=== PATIENT | male | born 1980 | race African-American/Black ===

== ENCOUNTER 2021-05-12 12:20 | Outpatient (REF) | payer OTHER, SELFPAY ==
[2021-05-12 14:01] LABS: Appearance Urine CLEAR; Color Urine YELLOW; Glucose Urine UA NEG (NEG); Leukocyte Esterase Urine NEG (NEG); Nitrite Urine NEG (NEG); Urine Blood NEG (NEG); Urine Ketones NEG (NEG); Urine Protein TRACE MG/DL (NEG-TRACE)
[2021-05-12 14:19] LABS: Alanine Aminotransferase 9 U/L (0-40); Albumin Level 4.1 g/dL (3.5-5.0); Alkaline Phosphatase 89 U/L (39-117); Anion Gap 9 (12-20); Aspartate Amino Transferase 13 U/L (5-37); Bilirubin Total 0.6 mg/dL (0.0-1.0); Blood Urea Nitrogen 6 mg/dL (9-16); Calcium 9.4 mg/dL (8.4-10.2); Carbon Dioxide 28 mmol/L (22-29); Chloride 107 mmol/L (96-108); Cholesterol 136 mg/dL; Estimated Glomerular Filt Rate > 60; Glucose Fasting 78 mg/dL (60-99); HDL Cholesterol 37 mg/dL; LDL Cholesterol Calculated 68 mg/dl; Potassium 4.4 mmol/L (3.3-5.1); Sodium 140 mmol/L (135-145); Total Protein 6.7 g/dL (6.5-8.0); Triglycerides 155 mg/dL
[2021-05-12 14:36] LABS: TSH reflex Free T4 0.96 uIU/mL (0.32-4.0)
== END 2021-05-12 12:21 | disposition home or self-care (01) ==
LOC: HO.HMGCLDS 12:20
PROVIDERS: PCP Nurse Practitioner Family; Visit Provider Nurse Practitioner Family
DX: F25.9 Schizoaffective disorder, unspecified (principal); Z86.69 Personal history of other diseases of the nervous system and sense organs
CPT/HCPCS: 36415; 80053; 80061; 81003; 84443

== ENCOUNTER 2021-09-15 11:51 | Outpatient (REF) | payer OTHER, SELFPAY ==
[2021-09-15 14:17] LABS: Erythrocyte Sedimentation Rate 1 MM/HR (0-15)
[2021-09-16 13:30] LABS: Vitamin B12 391 pg/mL (200-900)
[2021-09-17 06:02] LABS: Lyme Blot 1.09 index
[2021-09-17 09:50] LABS: HIV AB/AG Nonreactive (Nonreactive); HIV Num 1 0.06 S/CO (0.00-0.99)
[2021-09-17 11:36] LABS: Lyme Abs Screen EQUIVOCAL
[2021-09-17 12:51] LABS: Anti Nuclear Antibody Screen NEGATIVE (NEGATIVE)
[2021-09-18 08:45] LABS: Syphilis Screen Nonreactive (Nonreactive)
[2021-09-21 12:51] LABS: 18 KD (IgG) Band NON-REACTIVE; 23 KD (IgG) Band NON-REACTIVE; 23 KD (IgM) Band NON-REACTIVE; 28 KD (IgG) Band NON-REACTIVE; 30 KD (IgG) Band NON-REACTIVE; 39 KD (IgM) Band NON-REACTIVE; 41 KD (IgM) Band NON-REACTIVE; 45 KD (IgG) Band REACTIVE; 58 KD (IgG) Band NON-REACTIVE; 66 KD (IgG) Band NON-REACTIVE; 93 KD (IgG) Band NON-REACTIVE; Lyme IgG Blot Interp NEGATIVE (NEGATIVE); Lyme IgM Blot Interp NEGATIVE (NEGATIVE)
== END 2021-09-15 11:52 | disposition home or self-care (01) ==
LOC: HO.LAB 11:51
PROVIDERS: PCP Nurse Practitioner Family; Visit Provider Psychiatry & Neurology Neurology
DX: Z11.4 Encounter for screening for human immunodeficiency virus [HIV] (principal); G93.49 Other encephalopathy
CPT/HCPCS: 36415; 82607; 85652; 86038; 86039; 86617; 86618; 86780; 87389

== ENCOUNTER 2022-11-23 11:52 | Outpatient (REF) | payer OTHER, SELFPAY ==
[2022-11-23 14:06] LABS: MANUAL DIFF FLAG NO
[2022-11-23 14:10] LABS: Basophils Percent Auto 0.4 % (0-2); Eosinophils Absolute Auto 0.1 X10*3/uL (0.0-0.4); Eosinophils Percent Auto 1.9 % (0-4); Hematocrit 49.5 % (42.0-52.0); Imm Gran Abs Auto 0.01 X10*3/uL (0.00-0.03); Imm Gran Pct Auto 0.2 % (0.0-0.4); Lymphocytes Absolute Auto 2.2 X10*3/uL (1.2-4.9); Lymphocytes Percent Auto 39.1 % (20-40); Mean Corpuscular HGB Conc 34.3 g/dl (31.0-36.0); Mean Corpuscular Hemoglobin 32.5 pg (27.0-33.0); Mean Corpuscular Volume 94.6 fL (80.0-98.0); Mean Platelet Volume 10.3 fL (9.4-12.4); Monocytes Absolute Auto 0.5 X10*3/uL (0.1-1.2); Monocytes Percent Auto 7.9 % (2-11); Neutrophils Absolute Auto 2.9 x10*3/uL (2.0-8.3); Neutrophils Percent Auto 50.5 % (45-73); Platelet Count 245 X10*3/uL (160-400); Red Blood Count 5.23 X10*6/uL (4.60-5.80); Red Cell Distribution Width 12.7 % (11.0-16.0); White Blood Count 5.7 X10*3/uL (4.8-10.8)
[2022-11-23 14:21] LABS: Appearance Urine Turbid; Color Urine Other; Glucose Urine UA Negative (Negative); Leukocyte Esterase Urine Negative (Negative); PH 5.5 (5.0-9.0); Specific Gravity - Urine >= 1.030 (1.005-1.025); UMIC TRIGGER UACC YES; Urine Blood Negative (Negative); Urine Ketones Negative (Negative); Urine Protein Negative (Neg-Trace)
[2022-11-23 14:33] LABS: Anion Gap 9 (12-20); Blood Urea Nitrogen 9 mg/dL (9-16); Carbon Dioxide 28 mmol/L (22-29); Chloride 107 mmol/L (96-108); Estimated Glomerular Filt Rate > 60; Glucose Fasting 82 mg/dL (60-99); Sodium 140 mmol/L (135-145)
[2022-11-23 14:34] LABS: Alanine Aminotransferase 9 U/L (0-40); Albumin Level 4.1 g/dL (3.5-5.0); Alkaline Phosphatase 89 U/L (39-117); Aspartate Amino Transferase 14 U/L (5-37); Bilirubin Total 1.6 mg/dL (0.0-1.0); Calcium 9.4 mg/dL (8.4-10.2); Cholesterol 171 mg/dL; HDL Cholesterol 37 mg/dL; LDL Cholesterol Calculated 106 mg/dl; Total Protein 6.5 g/dL (6.5-8.0); Triglycerides 143 mg/dL
[2022-11-23 14:35] LABS: Bacteria Urine None Seen (None Seen); Hyaline Casts Urine 0-2 /LPF (0-2); RBC Urine 0-2 /HPF (0-2); Squamous Epithelial Cell Urine 0-2 /HPF (0-2); WBC Urine 0-5 /HPF (0-5)
[2022-11-23 14:51] LABS: Prostate Specific Antigen Scr 0.75 ng/mL (<0.05-4.0); TSH reflex Free T4 1.64 uIU/mL (0.32-4.0)
== END 2022-11-23 11:53 | disposition home or self-care (01) ==
LOC: HO.HMGCLDS 11:52
PROVIDERS: PCP Nurse Practitioner Family; Visit Provider Nurse Practitioner Family
DX: F25.9 Schizoaffective disorder, unspecified (principal); F31.62 Bipolar disorder, current episode mixed, moderate; N40.0 Benign prostatic hyperplasia without lower urinary tract symptoms; R17 Unspecified jaundice
CPT/HCPCS: 36415; 80053; 80061; 81001; 84153; 84443; 85025

== ENCOUNTER 2023-06-14 15:05 | Outpatient (AMB) | payer OTHER, SELFPAY ==
[2023-06-14 15:07] VITALS: BP 110/76; PULSE 72; O2SAT 95; BMI 22.3
--- NOTE | 2023-06-14 15:07 | MHC.PC.OV ---
Vital Signs 06/14/23 15:07 Height 5 ft 9 in Weight 151 lb BMI 22.3 BP 110/76 Blood Pressure Location Lt brachial Position Sitting Pulse 72 Pulse Source Pulse Oximeter Pulse Oximetry (%) 95 Oxygen Delivery Method Room Air Intake Visit Reasons: PE Intake Note: Pt is here today for PE. Allergies No Known Allergies Allergy (Verified 06/14/23 15:09) Medication List - Last Reconciled 06/14/23 by GERSON Garcia albuterol sulfate 2.5 mg (3 mL) inhalation Q8H 30 days albuterol sulfate 90 mcg/actuation 2 puffs inhalation Q6H PRN 30 days buspirone 10 mg PO DAILY cholecalciferol (vitamin D3) (Vitamin D3) 10 mcg PO DAILY 90 days finasteride 5 mg PO DAILY 90 days fluticasone propionate 50 mcg/actuation (Flovent Diskus) 1 inh inhalation BID 30 days gabapentin 100 mg PO BID iloperidone (Fanapt) 1 mg PO BID iloperidone (Fanapt) 2 mg PO BID montelukast 10 mg PO DAILY 90 days Tobacco use date assessed: 06/14/23 Dental Screening Dental Screen Date: 06/14/23 Did you have a dental visit in the last 12 months?: No Did you have a dental problem in the last 6 months where you did not have access to dental care?: Yes Was dental information given to patient?: Yes HPI PE HPI Details Pt is here for a PE. Will order labs. Pt does see a psychiatrist. Hx of vitamin D deficiency, will order labs. [facility] Medical History Asthma Bipolar disorder, current episode mixed, moderate Enlarged prostate Hemorrhoids Post traumatic stress disorder (PTSD) Schizoaffective disorder Seizures Social History Housing: House Patient Tobacco Use Status: Current everyday Tobacco user (black and milds ) Tobacco use type: Cigar Cigarettes Per Day: 5 e-Cigarette/Vaping Use: Never Used Second Hand Smoke Exposure: No service: No Current occupational status: disabled Cognitive needs: No Hearing needs: No Vision needs: No Questionnaire PHQ-9 Over the last 2 weeks, how often have you been bothered by any of the following problems? 1. Little interest or pleasure in doing things: nearly every day 2. Feeling down, depressed, or hopeless: nearly every day 3. Trouble falling or staying asleep, or sleeping too much: more than half the days 4. Feeling tired or having little energy: more than half the days 5. Poor appetite or overeating: nearly every day 6. Feeling bad about yourself - or that you are a failure or have let yourself or your family down: more than half the days 7. Trouble concentrating on things, such as reading the newspaper or watching television: nearly every day 8. Moving or speaking so slowly that other people could have noticed. Or the opposite - being so fidgety or restless that you have been moving around a lot more than usual: more than half the days 9. Thoughts that you would be better off or of hurting yourself in some way: not at all Total score: 20 Depression Screening Interpretation: Positive Depression Screening Follow-up: Existing condition, In treatment and Other (has a psychiatrist, denies any SI or HI) Depression Screening Done: Yes 19991 - PHQ-9 Billing: Yes Source: Developed by Drs. Phil Leonardo, Katie Simons, Horace Wills and colleagues, with an educational adalid from [employer]. Thrive Questionnaire Date Thrive assessed: 06/14/23 I am a: Patient What is your living situation today?: I have a steady place to live Within the past 12 months, did the food you bought not last and you didn't have the money to get more?: Often true Within the past 12 months, did you worry whether your food would run out before you got money to buy more?: Often true Do you have trouble paying for medicines?: Yes Do you have trouble getting transportation to medical appointments?: No Do you have trouble paying your heating and electricity bill?: Yes Do you have trouble taking care of your child, family member or friend?: No Do you have trouble with day-to-day activities such as bathing, preparing meals, shopping, managing finances, etc.?: Yes Are you currently unemployed and looking for a job?: No Are you interested in more education?: Yes Please select the resources that you would like help with: Paying for medicine, Utilities, Daily support and Education MIRIAN-7 AMB Questionnaire MIRIAN-7 Date MIRIAN - 7 assessed: 06/14/23 Feeling nervous, anxious, or on edge: 3 = Nearly every day Not being able to stop or control worryin = Nearly every day Worrying too much about different things: 3 = Nearly every day Trouble relaxin = Nearly every day Being so restless that it is hard to sit still: 3 = Nearly every day Becoming easily annoyed or irritable: 3 = Nearly every day Feeling afraid as if something awful might happen: 2 = More than half the days Total MIRIAN-7 score (0-4 normal; 5-9 mild; 10-14 moderate; 15-21 severe): 20 Source: Developed by Drs. Phil Leonardo, Katie Simons, Horace Wills and colleagues, with an educational adalid from [employer]. MIRIAN-7 Assessment Billing MIRIAN-7 Assessment Tool: MIRIAN-7 Assessment 66286 Review of Systems Const Denies chills and Denies fever(s) Eyes Denies blurry vision ENT Denies vertigo, Denies dizziness and Denies sore throat Card Denies chest pain at rest, Denies chest pain with activity, Denies diaphoresis, Denies dyspnea and Denies dyspnea on exertion Resp Denies cough, Denies dyspnea, Denies dyspnea on exertion and Denies wheezing GI Denies abdominal pain, Denies melena, Denies hematochezia, Denies constipation, Denies diarrhea and Denies loose stools Denies hematuria Musc Denies numbness and Denies tingling Skin/Breast Denies lesions Neuro Denies vertigo, Denies dizziness, Denies numbness and Denies tingling Psych Denies anxiety, Denies depression, Denies homicidal ideation, Denies suicidal ideation and Denies other (substance abuse) Aller/Immun Denies wheezing Physical exam (Primary Care) Vital Signs: Last Vital Signs Pulse 72 06/14/23 15:07 BP 110/76 06/14/23 15:07 Pulse Ox 95 06/14/23 15:07 Oxygen Delivery Method Room Air 06/14/23 15:07 BMI result Body Mass Index 22.3 Tobacco/Smoking Status: Tobacco use Status Tobacco use date assessed 06/14/23 06/14/23 15:13 Patient Tobacco Use Status Current everyday Tobacco ( 06/14/23 15:07 black and milds ) Tobacco use type Cigar 06/14/23 15:07 e-Cigarette/Vaping Use Never Used 06/14/23 15:07 PHQ-9: PHQ-9 Score PHQ-9: Total score 20 06/14/23 15:51 Depression Screening Interpretation: Positive Depression Screening Follow-up: Existing condition, In treatment and Other (has a psychiatrist, denies any SI or HI) Thrive Assessment: Date of Thrive Assessment Date Thrive assessed 06/14/23 06/14/23 15:51 Const General: cooperative Nutritional Appearance: well nourished Orientation/consciousness: patient oriented x3 HENMT Head: Yes normal to inspection, Yes normocephalic and Yes atraumatic Ears: TM's normal bilaterally Eyes General: appearance normal, both eyes and all related structures Alignment and Position: alignment normal and position normal Neck Neck: Yes normal visual inspection and Yes no lymphadenopathy Thyroid: Thyroid normal Resp Effort & Inspection: normal respiratory effort Auscultation: clear to auscultation bilaterally Cardio Rate: regular rate Rhythm: regular rhythm Heart sounds: S1 normal heart sound present, S2 normal heart sound present and no murmurs GI Palpation (GI): Soft to palpation and nontender Auscultation: normal bowel sounds Male General Exam: Yes normal external exam Penis: normal penis Scrotum: scrotum normal, testes descended bilaterally and no inguinal hernias Testes: no testicular mass Skin Rashes: no rashes Neuro General: patient oriented x3, moves all extremities, no focal motor deficits and deep tendon reflexes 2+ bilaterally Romberg Test: Negative Psych Appearance: grossly normal Mental Status: mental status grossly normal Speech and movement: Normal speech and movement present Affect: normal affect Attitude: cooperative Thought process: Normal thought process present Thought content: Normal thought content present Insight: Good insight present (Psych) Judgement: Good judgement present (Psych) Assessment and Plan Assessment & Plan (1) Physical exam: Code(s): Z00.00 - Encounter for general adult medical examination without abnormal findings Plan: Labs ordered (2) Vitamin D deficiency: Code(s): E55.9 - Vitamin D deficiency, unspecified Plan: Labs ordered Plan The patient agreed to the use of a ophthalmic medical technologist for this encounter. Scribed for GERSON Ramirez by Kathrine Lam ophthalmic medical technologist, on 06/14/2023 at 15:30 EST. Orders: Orders Comprehensive [place]. Panel Fast Today Z00.00 - Encounter for general adult medical examination without abnormal findings Lipid Panel Today Z00.00 - Encounter for general adult medical examination without abnormal findings Vitamin D 25-OH Total Today E55.9 - Vitamin D deficiency, unspecified Complete Blood Count Auto Diff Today Z00.00 - Encounter for general adult medical examination without abnormal findings TSH reflex Free T4 Today Z00.00 - Encounter for general adult medical examination without abnormal findings UA CC w/rflx Micro + Cult Today Z00.00 - Encounter for general adult medical examination without abnormal findings Coding Level of Care Code Est Pt Prev Care 40-64y(71927) Diagnoses Physical exam Z00.00 Vitamin D deficiency E55.9 Additional Codes MIRIAN-7 Assessment Billing - MIRIAN-7 Assessment Tool: MIRIAN-7 Assessment [id number] ([id number])
== END 2023-06-14 15:42 | disposition home or self-care (01) ==
PROVIDERS: Visit Provider Nurse Practitioner Family
DX: Z00.00 Encounter for general adult medical examination without abnormal findings (principal); E55.9 Vitamin D deficiency, unspecified; F31.62 Bipolar disorder, current episode mixed, moderate; F25.9 Schizoaffective disorder, unspecified
CPT/HCPCS: 99396

== ENCOUNTER 2024-06-21 09:53 | Outpatient (AMB) | payer OTHER, SELFPAY ==
--- NOTE | 2024-06-21 09:56 | AM.OFFWIN_ITS ---
Intake Vital Signs 3 06/21/24 10:03 Height 5 ft 9 in BP 110/72 Blood Pressure Location Rt brachial Position Sitting Pulse 72 Pulse Source Pulse Oximeter Temp 97.7 F Temp Source Oral Pulse Oximetry (%) 96 Oxygen Delivery Method Room Air Intake Visit Reasons: EP-lt side face swollen Intake Note: pt is here for left side face swollen Patient Tobacco Use Status: Current everyday Tobacco user (black and milds ) Allergies No Known Allergies Allergy (Verified 06/14/23 15:09) Do you need a note to return to daycare/school/sports/work: No HPI HPI Comments 2 History of Present Illness0 Details Patient is a 43-year-old male here with his door paneler complaining of left-sided jaw and tooth and gum pain for the last few days. He tells me he had a root canal and a cap placed on that tooth many years ago and he was chewing on candy and he thinks it might have cracked and now it is very painful. He states it is his left cheek is tender to the touch and it is swollen. He tells me he has not been to the dentist in many years and he does not currently have 1. [facility] Medical History Asthma Bipolar disorder, current episode mixed, moderate Enlarged prostate Hemorrhoids Post traumatic stress disorder (PTSD) Schizoaffective disorder Seizures Social History Housing: House Patient Tobacco Use Status: Current everyday Tobacco user (black and milds ) Tobacco use type: Cigar Cigarettes Per Day: 5 e-Cigarette/Vaping Use: Never Used Second Hand Smoke Exposure: No service: No Current occupational status: disabled Cognitive needs: No Hearing needs: No Vision needs: No Review of Systems Const All systems reviewed & are unremarkable except as noted in HPI and below Physical Exam Vital Signs: Last Vital Signs Temp 97.7 F 06/21/24 10:03 Pulse 72 06/21/24 10:03 BP 110/72 06/21/24 10:03 Pulse Ox 96 06/21/24 10:03 Oxygen Delivery Method Room Air 06/21/24 10:03 Const General: cooperative, healthy appearing, comfortable and no acute distress Orientation/consciousness: patient oriented x3 Limitations: no limitations HEENT Head: Yes normal to inspection Ears: hearing grossly normal bilaterally General nose exam: Normal external nose present Face and sinus: Yes other (Very slight swelling in the left side mid jaw) Mouth: Normal oral and palatal mucosa present, lip normal, tongue normal and moist mucous membranes Teeth and gingiva: multiple restorations and poor dentition Teeth image: 2 1. Tenderness to palpation with very slight erythema and very slight swelling Throat: Yes tonsils normal and Yes uvula midline Eyes General: appearance normal, both eyes and all related structures Neck Neck: Yes normal visual inspection, Yes full ROM and Yes no lymphadenopathy Resp Effort & Inspection: normal respiratory effort and able to speak in complete sentences Skin General skin exam: no rashes or lesions noted Neuro General: patient oriented x3 Assessment & Plan Assessment & Plan (1) Dental infection: Code(s): K04.7 - Periapical abscess without sinus Plan: We will treat as a dental infection with Augmentin twice a day for 1 week. Encouraged patient to follow up with a dentist, his door paneler also encouraged him to go to the dentist. Plan see above Medications: New 2 amoxicillin-pot clavulanate 875-125 mg 1 tab PO Q12H 14 tabs 0RF Coding Level of Care Code Est Pt Level 3 (09230) Diagnoses Dental infection K04.7
[2024-06-21 10:03] VITALS: BP 110/72; PULSE 72; TEMP 36.5; O2SAT 96
== END 2024-06-21 11:41 | disposition home or self-care (01) ==
PROVIDERS: PCP Nurse Practitioner Family; Visit Provider Physician Assistant
DX: K04.7 Periapical abscess without sinus (principal)

== ENCOUNTER → 2024-06-21 09:53 | Outpatient (BNVA) | payer OTHER, SELFPAY | PROVIDERS: PCP Nurse Practitioner Family; Visit Provider Physician Assistant | DX: K04.7 Periapical abscess without sinus (principal) | CPT/HCPCS: 99212 ==

== ENCOUNTER 2024-06-26 13:39 | Outpatient (AMB) | payer OTHER, SELFPAY ==
[2024-06-26 13:40] VITALS: BP 112/70; PULSE 76; O2SAT 96; BMI 21.1
--- NOTE | 2024-06-26 13:40 | A.OFFPC_ITS ---
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 Accompanied by: Unknown Allergies No Known Allergies Allergy (Verified 06/26/24 13:49) Medication List - Last Reconciled 06/26/24 by GERSON Garcia albuterol sulfate 2.5 mg (3 mL) inhalation Q8H 30 days albuterol sulfate 90 mcg/actuation 2 puffs inhalation Q6H PRN 30 days amoxicillin-pot clavulanate 875-125 mg 1 tab PO Q12H buspirone 10 mg PO DAILY cholecalciferol (vitamin D3) (Vitamin D3) 10 mcg PO DAILY 90 days finasteride 5 mg PO DAILY 90 days fluticasone propionate 50 mcg/actuation (Flovent Diskus) 1 inh inhalation BID 30 days gabapentin 100 mg PO BID iloperidone (Fanapt) 1 mg PO BID iloperidone (Fanapt) 2 mg PO BID montelukast 10 mg PO DAILY 90 days Tobacco use date assessed: 06/26/24 Dental Screening Dental Screen Date: 06/26/24 Did you have a dental visit in the last 12 months?: Yes Did you have a dental problem in the last 6 months where you did not have access to dental care?: No Was dental information given to patient?: Patient has dentist HPI HPI Comments 2 History of Present Illness0 Details Pt is here for a PE. Pt does have a psychiatrist, interactive multimedia designer caregiver in the room today with pt. Ongoing tooth pain, lower left, slight tenderness reported to gum line, pt working on seeing a dentist. [facility] Medical History Asthma Bipolar disorder, current episode mixed, moderate Enlarged prostate Hemorrhoids Post traumatic stress disorder (PTSD) Schizoaffective disorder Seizures Social History Housing: House Patient Tobacco Use Status: Current everyday Tobacco user (black and milds ) Tobacco use type: Cigar Cigarettes Per Day: 5 e-Cigarette/Vaping Use: Never Used Second Hand Smoke Exposure: No service: No Current occupational status: disabled Cognitive needs: No Hearing needs: No Vision needs: No Questionnaire PHQ-9 Over the last 2 weeks, how often have you been bothered by any of the following problems? 1. Little interest or pleasure in doing things: nearly every day 2. Feeling down, depressed, or hopeless: nearly every day 3. Trouble falling or staying asleep, or sleeping too much: more than half the days 4. Feeling tired or having little energy: more than half the days 5. Poor appetite or overeating: nearly every day 6. Feeling bad about yourself - or that you are a failure or have let yourself or your family down: more than half the days 7. Trouble concentrating on things, such as reading the newspaper or watching television: nearly every day 8. Moving or speaking so slowly that other people could have noticed. Or the opposite - being so fidgety or restless that you have been moving around a lot more than usual: more than half the days 9. Thoughts that you would be better off or of hurting yourself in some way: not at all Total score: 20 Depression Screening Interpretation: Positive Depression Screening Follow-up: Existing condition, In treatment and Other (has a psychiatrist, denies any SI or HI) Depression Screening Done: Yes 80329 - PHQ-9 Billing: Yes Source: Developed by Drs. Phil Leonardo, Katie Simons, Horace Wills and colleagues, with an educational adalid from [employer]. Thrive Questionnaire Date Thrive assessed: 06/26/24 I am a: Patient What is your living situation today?: I have a steady place to live Within the past 12 months, did the food you bought not last and you didn't have the money to get more?: Often true Within the past 12 months, did you worry whether your food would run out before you got money to buy more?: Often true Do you have trouble paying for medicines?: Yes Do you have trouble getting transportation to medical appointments?: No Do you have trouble paying your heating and electricity bill?: Yes Do you have trouble taking care of your child, family member or friend?: No Do you have trouble with day-to-day activities such as bathing, preparing meals, shopping, managing finances, etc.?: Yes Are you currently unemployed and looking for a job?: No Are you interested in more education?: Yes Please select the resources that you would like help with: Paying for medicine, Utilities, Daily support and Education Currently or been in a relationship where the following occur: No concerns reported THRIVE Score: 3 AUDIT C Alcohol Use Questionnaire (AUDIT-C) 1. How often do you have a drink containing alcohol?: Never 3. How often do you have six or more drinks on one occasion?: Never Total Score: 0 Score Reviewed/Action Taken: Yes MIRIAN-7 AMB Questionnaire MIRIAN-7 Date MIRIAN - 7 assessed: 06/26/24 Feeling nervous, anxious, or on edge: 3 = Nearly every day Not being able to stop or control worryin = Nearly every day Worrying too much about different things: 3 = Nearly every day Trouble relaxin = Nearly every day Being so restless that it is hard to sit still: 3 = Nearly every day Becoming easily annoyed or irritable: 3 = Nearly every day Feeling afraid as if something awful might happen: 2 = More than half the days Total MIRIAN-7 score (0-4 normal; 5-9 mild; 10-14 moderate; 15-21 severe): 20 Source: Developed by Drs. Phil Leonardo, Katie Simons, Horace Wills and colleagues, with an educational adalid from [employer]. MIRIAN-7 Assessment Billing MIRIAN-7 Assessment Tool: MIRIAN-7 Assessment 82230 (denies any SI or HI, has a psychiatrist) Review of Systems Const Denies chills and Denies fever(s) Eyes Denies blurry vision ENT Denies vertigo, Denies dizziness and Denies sore throat Card Denies chest pain at rest, Denies chest pain with activity, Denies diaphoresis, Denies dyspnea and Denies dyspnea on exertion Resp Denies cough, Denies dyspnea, Denies dyspnea on exertion and Denies wheezing GI Denies abdominal pain, Denies melena, Denies hematochezia, Denies constipation, Denies diarrhea and Denies loose stools Denies hematuria Musc Denies numbness and Denies tingling Skin/Breast Denies lesions Neuro Denies vertigo, Denies dizziness, Denies numbness and Denies tingling Psych Denies anxiety, Denies depression, Denies homicidal ideation, Denies suicidal ideation and Denies other (substance abuse) Aller/Immun Denies wheezing Physical exam (Primary Care) Vital Signs: Last Vital Signs Pulse 76 06/26/24 13:40 BP 112/70 06/26/24 13:40 Pulse Ox 96 06/26/24 13:40 BMI result Body Mass Index 21.1 Tobacco/Smoking Status: Tobacco use Status Tobacco use date assessed 06/26/24 06/26/24 13:46 Patient Tobacco Use Status Current everyday Tobacco ( 06/26/24 13:46 black and milds ) Tobacco use type Cigar 06/26/24 13:46 e-Cigarette/Vaping Use Never Used 06/26/24 13:46 PHQ-9: PHQ-9 Score PHQ-9: Total score 20 06/26/24 13:46 Depression Screening Interpretation: Positive Depression Screening Follow-up: Existing condition, In treatment and Other (has a psychiatrist, denies any SI or HI) Thrive Assessment: Date of Thrive Assessment Date Thrive assessed 06/26/24 06/26/24 13:46 Currently or been in a relationship where the following occur: No concerns reported Const Other: uses a cane, wearing sunglasses and a large hat General: cooperative Nutritional Appearance: well nourished Orientation/consciousness: patient oriented x3 HENMT Head: Yes normal to inspection, Yes normocephalic and Yes atraumatic Ears: TM normal on the right and TM normal on the left Teeth and gingiva: poor dentition (no active pus/drainage, tenderness along lower left mid gumline) Throat: Yes posterior oropharynx normal Throat image: 2 1. tenderness Eyes General: appearance normal, both eyes and all related structures Alignment and Position: alignment normal and position normal Neck Neck: Yes normal visual inspection, Yes no lymphadenopathy and Yes supple Resp Effort & Inspection: normal respiratory effort Auscultation: clear to auscultation bilaterally Cardio Rate: regular rate Rhythm: regular rhythm Heart sounds: S1 normal heart sound present, S2 normal heart sound present and no murmurs GI Palpation (GI): Soft to palpation and nontender Auscultation: normal bowel sounds Male General Exam: Yes normal external exam Penis: normal penis Scrotum: scrotum normal, testes descended bilaterally and no inguinal hernias Testes: no testicular mass Skin Rashes: no rashes Neuro General: patient oriented x3, moves all extremities, no focal motor deficits and deep tendon reflexes 2+ bilaterally Romberg Test: Negative Extrem Right lower extremity: no edema Left lower extremity: no edema Psych Speech and movement: Normal speech and movement present Affect: normal affect Attitude: cooperative Thought content: Normal thought content present Insight: Fair insight present (Psych) Judgement: Fair judgement present (Psych) Coding Level of Care Code Est Pt Prev Care 40-64y(39536) Diagnoses Dental infection K04.7 Physical exam Z00.00 Smoker F17.200 Additional Codes PHQ-9 - 25295 - PHQ-9 Billing: Yes ([id number]) MIRIAN-7 Assessment Billing - MIRIAN-7 Assessment Tool: MIRIAN-7 Assessment 78503 ([id number]) Assessment & Plan Assessment & Plan (1) Dental infection: Code(s): K04.7 - Periapical abscess without sinus Category: Medical Plan: pt following up with a dentist in the near future. Augmentin helping (currently taking) (2) Physical exam: Code(s): Z00.00 - Encounter for general adult medical examination without abnormal findings Category: Medical Plan: labs ordered (3) Smoker: Code(s): F17.200 - Nicotine dependence, unspecified, uncomplicated Category: Social Hx Plan dangers and risks expressed to pt
== END 2024-06-26 14:56 | disposition home or self-care (01) ==
PROVIDERS: PCP Nurse Practitioner Family; Visit Provider Nurse Practitioner Family
DX: K04.7 Periapical abscess without sinus (principal); Z00.00 Encounter for general adult medical examination without abnormal findings; F17.200 Nicotine dependence, unspecified, uncomplicated

== ENCOUNTER → 2024-06-26 13:39 | Outpatient (BNVA) | payer OTHER, SELFPAY | PROVIDERS: PCP Nurse Practitioner Family; Visit Provider Nurse Practitioner Family | DX: Z00.00 Encounter for general adult medical examination without abnormal findings (principal); K04.7 Periapical abscess without sinus; F17.200 Nicotine dependence, unspecified, uncomplicated; Z71.6 Tobacco abuse counseling | CPT/HCPCS: 96127; 99396 ==